=== PATIENT | female | born 1940 | race Caucasian/White ===

== ENCOUNTER → 2018-10-09 | Outpatient (CLI) | payer OTHER ==
[~2018-10-09] MED LIST: LOMOTIL 2.5-0.1 EACH PO; ZOFRAN4 MG PO
== END | disposition home or self-care (01) ==
LOC: RAD 13:59
DX: J06.9 Acute upper respiratory infection, unspecified (principal); R09.89 Other specified symptoms and signs involving the circulatory and respiratory systems

== ENCOUNTER 2019-01-23 04:03 | Emergency (ER) | payer OTHER ==
[~2019-01-23] VITALS: Ht 154.9 cm; Wt 65.8 kg
[2019-01-23 04:50] LABS: BASO % 0.4 % (0.0-1.0); EOS # 0.1 10*3/uL (0.0-0.4); EOS % 0.5 % (1.0-4.0); HEMATOCRIT 42.1 % (37.0-47.0); HEMOGLOBIN 14.8 g/dl (12.0-16.0); LYMPH # 1.1 10*3/uL (1.3-4.4); LYMPH % 10.3 % (27.0-41.0); MEAN CELL VOLUME 95.5 fl (81.0-99.0); MEAN CORPUSCULAR HGB 33.6 pg (27.0-31.0); MEAN CORPUSCULAR HGB CONC 35.2 g/dl (33.0-37.0); MEAN PLATELET VOLUME 8.9 fl (9.6-12.3); MONO # 0.6 10*3/uL (0.1-1.0); MONO % 5.5 % (3.0-9.0); NEUT # 8.7 10*3/uL (2.3-7.9); NEUT % 82.9 % (47.0-73.0); PLATELET COUNT AUTOMATED 224 10*3/uL (130-400); RED BLOOD COUNT 4.41 10*6/uL (4.10-5.10); RED CELL DISTRI WIDTH 13.3 % (0-14.5); WHITE BLOOD COUNT 10.5 10*3/uL (4.8-10.8)
[2019-01-23 05:03] LABS: BILIRUBIN NEGATIVE (NEGATIVE); BLOOD TRACE-INTACT (NEGATIVE); CLARITY CLEAR (CLEAR); COLOR YELLOW (YELLOW); GLUCOSE NEGATIVE (NEGATIVE); KETONE NEGATIVE (NEGATIVE); LEUKO ESTERASE NEGATIVE (NEGATIVE); NITRITE NEGATIVE (NEGATIVE); SPECIFIC GRAVITY >= 1.030 (1.005-1.030); UROBILINOGEN 0.2 E.U./dl (0.2-1.0)
[2019-01-23 05:06] LABS: ALBUMIN 4.2 gm/dl (3.1-4.5); ALKALINE PHOSPHATASE 116 U/L (45-117); BUN 16 mg/dl (7-24); CHLORIDE 109 mmol/L (98-107); CREATININE 0.93 mg/dL (0.55-1.02); LIPASE 133 U/L (73-393); SGOT/AST 22 IU/L (3-35); SGPT/ALT 27 U/L (12-78); SODIUM 141 mmol/L (136-145); TOTAL PROTEIN 7.6 gm/dL (6.4-8.2)
[2019-01-23 05:11] LABS: EPITHELIAL CELLS 35-40
[2019-01-23 05:12] LABS: WBC 0-2 wbc/hpf (0-5)
[2019-01-23] MEDS ORDERED: ZOFRAN4 MG PO (05:52)
[2019-01-23] MEDS ORDERED: LOMOTIL 2.5-0.1 EACH PO (05:52)
== END 2019-01-23 06:09 | disposition home or self-care (01) ==
LOC: ED 04:03
PROVIDERS: Emergency Medicine Emergency Medical Services
DX: K52.9 Noninfective gastroenteritis and colitis, unspecified (principal)

== ENCOUNTER 2019-05-08 19:57 | Emergency (ER) | payer OTHER ==
[~2019-05-08] VITALS: Ht 154.9 cm; Wt 68.0 kg
--- NOTE | ~2019-05-08 | EKG ---
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
[2019-05-08 20:13] LABS: BASO % 0.5 % (0.0-1.0); EOS % 0.4 % (1.0-4.0); HEMATOCRIT 40.6 % (37.0-47.0); HEMOGLOBIN 13.8 g/dl (12.0-16.0); LYMPH % 26.5 % (27.0-41.0); MEAN CELL VOLUME 97.8 fl (81.0-99.0); MEAN CORPUSCULAR HGB 33.3 pg (27.0-31.0); MEAN PLATELET VOLUME 8.9 fl (9.6-12.3); MONO # 0.6 10*3/uL (0.1-1.0); MONO % 7.3 % (3.0-9.0); NEUT # 4.9 10*3/uL (2.3-7.9); PLATELET COUNT AUTOMATED 213 10*3/uL (130-400); RED BLOOD COUNT 4.15 10*6/uL (4.10-5.10); RED CELL DISTRI WIDTH 13.2 % (0-14.5); WHITE BLOOD COUNT 7.6 10*3/uL (4.8-10.8)
[2019-05-08 20:33] LABS: ALBUMIN 4.1 gm/dl (3.1-4.5); ALKALINE PHOSPHATASE 152 U/L (45-117); BUN 23 mg/dl (7-24); CHLORIDE 107 mmol/L (98-107); CREATININE 1.18 mg/dL (0.55-1.02); POTASSIUM 3.9 mmol/L (3.5-5.1); SGOT/AST 19 IU/L (3-35); SGPT/ALT 23 U/L (12-78); SODIUM 141 mmol/L (136-145); TOTAL PROTEIN 7.5 gm/dL (6.4-8.2)
[2019-05-08 20:39] LABS: TROPONIN I < 0.015 ng/ml (<0.045)
== END 2019-05-08 22:43 | disposition left against medical advice (07) ==
LOC: ED 19:57
PROVIDERS: Emergency Medicine
DX: R42 Dizziness and giddiness (principal); M62.838 Other muscle spasm; R11.10 Vomiting, unspecified; M79.601 Pain in right arm

== ENCOUNTER → 2019-06-10 | Outpatient (CLI) | payer OTHER | END | disposition home or self-care (01) | LOC: US 14:26 | DX: G45.9 Transient cerebral ischemic attack, unspecified (principal); I10 Essential (primary) hypertension; R42 Dizziness and giddiness ==

== ENCOUNTER 2019-06-21 19:30 | Emergency (ER) | payer OTHER ==
[~2019-06-21] VITALS: Ht 154.9 cm; Wt 68.9 kg
--- NOTE | ~2019-06-21 | EKG ---
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
[2019-06-21] MEDS ORDERED: CIPROFLOXACIN500 M4 PO (19:35)
[2019-06-21] MEDS ORDERED: TRAZODONE50 MG PO (19:36)
[2019-06-21 20:10] LABS: BILIRUBIN NEGATIVE (NEGATIVE); BLOOD TRACE-INTACT (NEGATIVE); CLARITY CLEAR (CLEAR); COLOR YELLOW (YELLOW); GLUCOSE NEGATIVE (NEGATIVE); KETONE NEGATIVE (NEGATIVE); LEUKO ESTERASE NEGATIVE (NEGATIVE); NITRITE NEGATIVE (NEGATIVE); UROBILINOGEN 0.2 E.U./dl (0.2-1.0)
[2019-06-21 20:16] LABS: EPITHELIAL CELLS 16-20; RBC 0-2 rbc/hpf (0-2)
[2019-06-21 20:20] LABS: BASO % 0.7 % (0.0-1.0); EOS # 0.1 10*3/uL (0.0-0.4); EOS % 1.4 % (1.0-4.0); HEMATOCRIT 37.6 % (37.0-47.0); LYMPH # 2.5 10*3/uL (1.3-4.4); LYMPH % 45.5 % (27.0-41.0); MEAN CELL VOLUME 97.2 fl (81.0-99.0); MEAN CORPUSCULAR HGB 33.6 pg (27.0-31.0); MEAN CORPUSCULAR HGB CONC 34.6 g/dl (33.0-37.0); MEAN PLATELET VOLUME 8.9 fl (9.6-12.3); MONO # 0.5 10*3/uL (0.1-1.0); NEUT # 2.4 10*3/uL (2.3-7.9); NEUT % 43.2 % (47.0-73.0); PLATELET COUNT AUTOMATED 187 10*3/uL (130-400); RED BLOOD COUNT 3.87 10*6/uL (4.10-5.10); RED CELL DISTRI WIDTH 13.8 % (0-14.5); WHITE BLOOD COUNT 5.6 10*3/uL (4.8-10.8)
[2019-06-21 20:37] LABS: ALBUMIN 3.8 gm/dl (3.1-4.5); ALKALINE PHOSPHATASE 133 U/L (45-117); BUN 17 mg/dl (7-24); CHLORIDE 108 mmol/L (98-107); CREATININE 0.97 mg/dL (0.55-1.02); LIPASE 171 U/L (73-393); POTASSIUM 3.8 mmol/L (3.5-5.1); SGOT/AST 28 IU/L (3-35); SGPT/ALT 32 U/L (12-78); SODIUM 142 mmol/L (136-145); TOTAL PROTEIN 6.9 gm/dL (6.4-8.2); TROPONIN I < 0.015 ng/ml (<0.045)
[2019-06-21] MEDS ORDERED: PYRIDIUM100 MG PO (21:51)
== END 2019-06-21 21:55 | disposition home or self-care (01) ==
LOC: ED 19:30
PROVIDERS: Emergency Medicine Emergency Medical Services
DX: N81.6 Rectocele (principal); R30.0 Dysuria; R39.198 Other difficulties with micturition; M54.5 Low back pain; I10 Essential (primary) hypertension

== ENCOUNTER 2020-10-05 13:04 | Emergency (ER) | payer OTHER ==
[~2020-10-05] VITALS: Ht 154.9 cm; Wt 60.8 kg
[~2020-10-05 13:04] MED LIST changes: +CIPROFLOXACIN500 M4 PO; +PYRIDIUM100 MG PO; +TRAZODONE50 MG PO
== END 2020-10-05 15:27 | disposition home or self-care (01) ==
LOC: ED 13:04
DX: S20.211A Contusion of right front wall of thorax, initial encounter (principal); S05.12XA Contusion of eyeball and orbital tissues, left eye, initial encounter; Z90.89 Acquired absence of other organs; W01.198A Fall on same level from slipping, tripping and stumbling with subsequent striking against other object, initial encounter; Y93.89 Activity, other specified; Y92.89 Other specified places as the place of occurrence of the external cause; Y99.9 Unspecified external cause status

== ENCOUNTER 2022-03-02 16:04 | Emergency (ER) | payer OTHER ==
[~2022-03-02] VITALS: Ht 154.9 cm; Wt 65.3 kg
== END 2022-03-02 19:55 | disposition home or self-care (01) ==
LOC: ED 16:04
DX: S09.90XA Unspecified injury of head, initial encounter (principal); Z90.89 Acquired absence of other organs; W22.8XXA Striking against or struck by other objects, initial encounter; Y93.89 Activity, other specified; Y92.89 Other specified places as the place of occurrence of the external cause; Y99.8 Other external cause status

== ENCOUNTER 2022-07-10 15:06 | Emergency (ER) | payer OTHER ==
[~2022-07-10] VITALS: Ht 154.9 cm; Wt 63.5 kg
[2022-07-10 15:41] LABS: BASO % 0.2 % (0.0-1.0); HEMATOCRIT 39.3 % (37.0-47.0); LYMPH # 1.6 10*3/uL (1.3-4.4); LYMPH % 37.2 % (27.0-41.0); MEAN CELL VOLUME 90.6 fl (81.0-99.0); MEAN CORPUSCULAR HGB 31.8 pg (27.0-31.0); MEAN CORPUSCULAR HGB CONC 35.1 g/dl (33.0-37.0); MEAN PLATELET VOLUME 9.5 fl (9.6-12.3); MONO # 0.3 10*3/uL (0.1-1.0); MONO % 7.4 % (3.0-9.0); NEUT # 2.3 10*3/uL (2.3-7.9); PLATELET COUNT AUTOMATED 120 10*3/uL (130-400); RED BLOOD COUNT 4.34 10*6/uL (4.10-5.10); RED CELL DISTRI WIDTH 13.1 % (0-14.5); WHITE BLOOD COUNT 4.2 10*3/uL (4.8-10.8)
[2022-07-10 16:00] LABS: ALKALINE PHOSPHATASE 79 U/L (46-116); BUN 16 mg/dl (9-23); CHLORIDE 101 mmol/L (98-107); CREATININE 0.98 mg/dL (0.55-1.02); POTASSIUM 3.8 mmol/L (3.4-5.1); SGPT/ALT 10 U/L (10-49); TOTAL PROTEIN 6.9 gm/dL (6.0-8.0)
== END 2022-07-10 18:59 | disposition home or self-care (01) ==
LOC: ED 15:06
PROVIDERS: Student in an Organized Health Care Education/Training Program
DX: R06.02 Shortness of breath (principal); Z90.49 Acquired absence of other specified parts of digestive tract; Z98.890 Other specified postprocedural states; Z20.822 Contact with and (suspected) exposure to COVID-19

== ENCOUNTER 2024-10-17 19:53 | Emergency (ER) | payer MEDICARE ==
[~2024-10-17] VITALS: Ht 154.9 cm; Wt 59.0 kg
[2024-10-17 21:04] LABS: BUN 12 mg/dl (9-23); CHLORIDE 106 mmol/L (98-107); ETHYL ALCOHOL 185.1 mg/dl (<3)
[2024-10-17 21:11] LABS: HEMATOCRIT 39.4 % (37.0-47.0); MEAN CELL VOLUME 109.4 fl (81.0-99.0); MEAN CORPUSCULAR HGB 33.3 pg (27.0-31.0); MEAN CORPUSCULAR HGB CONC 30.5 g/dl (33.0-37.0); MEAN PLATELET VOLUME 9.3 fl (9.6-12.3); PLATELET COUNT AUTOMATED 178 10*3/uL (130-400); RED CELL DISTRI WIDTH 14.8 % (0-14.5); WHITE BLOOD COUNT 6.2 10*3/uL (4.8-10.8)
[2024-10-17 21:12] LABS: MANUAL DIFF REFLEX YES
[2024-10-17 21:55] LABS: BASOPHILS 1 % (0-1); OVALOCYTES FEW; PLATELET SUFFICIENCY NORMAL (NORMAL); ROULEAUX SLIGHT; TOTAL CELLS COUNTED 100 #CELLS
== END 2024-10-17 23:16 | disposition home or self-care (01) ==
LOC: ED 19:53
PROVIDERS: Emergency Medicine
DX: S00.03XA Contusion of scalp, initial encounter (principal); F10.129 Alcohol abuse with intoxication, unspecified; Z79.899 Other long term (current) drug therapy; Z90.89 Acquired absence of other organs; Z85.528 Personal history of other malignant neoplasm of kidney; Y90.6 Blood alcohol level of 120-199 mg/100 ml; W18.39XA Other fall on same level, initial encounter; Y93.01 Activity, walking, marching and hiking; Y92.480 Sidewalk as the place of occurrence of the external cause; Y99.8 Other external cause status

== ENCOUNTER 2025-01-02 11:59 | Emergency (ER) | payer MEDICARE ==
[~2025-01-02] VITALS: Ht 154.9 cm; Wt 58.5 kg
[~2025-01-02 11:59] MED LIST changes: +AMOX-CLAV 875-1 EACH PO; +ASPIRIN ADULT L81 M2 PO; +ATORVASTATIN CA80 M1 PO; +FUROSEMIDE20 M1 PO; +LOPRESSOR25 MG PO
[2025-01-02] MEDS ORDERED: Bacitracin Zinc 14 GM TUBE T ONE (12:30)
[2025-01-02] MEDS ORDERED: Lidocaine Hydrochloride 2% 10 ML AMP SC ONE (12:30)
[2025-01-02] MEDS ORDERED: CEPHALEXIN500 M1 PO (13:10)
[2025-01-02] MEDS ORDERED: Tdap Vaccine 0.5 ML SYR (Adult Vaccine) IM ONE (13:15)
[2025-01-02] MEDS ORDERED: CEPHALEXIN 500 MG CAP PO ONE (13:15)
== END 2025-01-02 13:26 | disposition home or self-care (01) ==
LOC: ED 11:59
DX: S61.412A Laceration without foreign body of left hand, initial encounter (principal); I25.2 Old myocardial infarction; I10 Essential (primary) hypertension; Z85.6 Personal history of leukemia; Z79.899 Other long term (current) drug therapy; Z85.72 Personal history of non-Hodgkin lymphomas; Z96.651 Presence of right artificial knee joint; Z96.641 Presence of right artificial hip joint; Z89.432 Acquired absence of left foot; Z79.82 Long term (current) use of aspirin; W20.8XXA Other cause of strike by thrown, projected or falling object, initial encounter; Y93.89 Activity, other specified; Y92.89 Other specified places as the place of occurrence of the external cause; Y99.8 Other external cause status

== ENCOUNTER → 2025-01-13 | Outpatient (CLI) | payer MEDICARE ==
[~2025-01-13] MED LIST changes: +CEPHALEXIN500 M1 PO
== END | disposition home or self-care (01) ==
LOC: WOUNDCARE 01:18
PROVIDERS: ATTEND Nurse Practitioner Family
DX: S61.412A Laceration without foreign body of left hand, initial encounter (principal); I10 Essential (primary) hypertension; I25.2 Old myocardial infarction; Z48.02 Encounter for removal of sutures; Z96.641 Presence of right artificial hip joint; Z96.642 Presence of left artificial hip joint; Z98.890 Other specified postprocedural states; X58.XXXA Exposure to other specified factors, initial encounter; Y93.89 Activity, other specified; Y93.G3 Activity, cooking and baking; Y99.8 Other external cause status

== ENCOUNTER → 2025-01-20 | Outpatient (CLI) | payer MEDICARE | END | disposition home or self-care (01) | LOC: WOUNDCARE 00:18 | PROVIDERS: ATTEND Nurse Practitioner Family | DX: S61.412D Laceration without foreign body of left hand, subsequent encounter (principal); S61.402D Unspecified open wound of left hand, subsequent encounter; I25.2 Old myocardial infarction; I10 Essential (primary) hypertension; Z48.02 Encounter for removal of sutures; Z96.651 Presence of right artificial knee joint; Z96.641 Presence of right artificial hip joint; X58.XXXD Exposure to other specified factors, subsequent encounter ==